=== PATIENT | female | born 1950 | race Caucasian/White ===

== ENCOUNTER 2019-03-04 16:00 | Outpatient (CLI) | payer MEDICARE, OTHER ==
--- NOTE | 2019-03-05 18:18 | XRAY Report ---
Reason: R FOOT PAIN 1ST IM SPACE Procedure Date: 03/04/2019 Accession Number: [id number] / [id number] Procedure: XR - Foot 3 View RT CPT Code: Final Report FULL RESULT: EXAM: RIGHT FOOT RADIOGRAPHY EXAM DATE: 03/04/2019 04:15 PM. CLINICAL HISTORY: Right foot pain, 1st IM space. COMPARISON: None. TECHNIQUE: 3 views. FINDINGS: Bones: Normal. No fractures or bone lesions. Joints: Normal. No subluxations. Soft Tissues: Normal. No soft tissue swelling. IMPRESSION: Negative right foot radiography. [facility]
== END 2019-03-04 16:01 | disposition home or self-care (01) ==
LOC: DI 16:00
PROVIDERS: ATTEND Podiatrist
DX: M79.671 Pain in right foot (principal)